=== PATIENT | male | born 1945 | race Caucasian/White ===

== ENCOUNTER 2020-01-31 10:19 | Emergency (ER) | payer MEDICARE ==
[~2020-01-31] VITALS: Ht 188 cm; Wt 99.8 kg
[2020-01-31 10:19] VITALS: BP 177/84
[2020-01-31] MEDS ORDERED: LEVO88TA3 PO (10:33)
[2020-01-31] MEDS ORDERED: ATOR1TAB19 PO (10:33)
[2020-01-31] MEDS ORDERED: ASPI81TA86 PO (10:33)
[2020-01-31] MEDS ORDERED: BOOSTRIX/ADACEL VACCINE (DIPHTH/PERTUSS/ACELL/TETANUS) 0.5ML SYR IM ONE (10:45)
[2020-01-31] MEDS ORDERED: DERMABOND TOPICAL SKIN ADHESIVE TOP ONE (10:45)
--- NOTE | 2020-01-31 11:27 | REP ---
LEFT WRIST, FOUR VIEWS: Four views of the left wrist are performed. There is an old ulnar styloid fracture. No acute fracture or dislocation is seen. There are mild degenerative changes at the joint between the trapezium and base of first metacarpal. Electronically Signed by Jef Mosley MD 01/31/2020 07:42 P
--- NOTE | 2020-01-31 11:30 | REP ---
RIGHT RIB SERIES: Four views of the right ribs are performed. No fracture or bone lesion is seen. An accompanying view of the chest demonstrates multiple old left rib fractures. There is no acute infiltrate in either lung and no evidence of pneumothorax or pleural effusion. The heart is normal in size and there is mild calcification and tortuosity of the thoracic aorta. IMPRESSION: No evidence of right rib fracture. Electronically Signed by Jef Mosley MD 01/31/2020 07:42 P
[2020-01-31] MEDS ORDERED: NORC1TAB7 PO (11:41)
== END 2020-01-31 11:45 | disposition home or self-care (01) ==
LOC: M ED 10:19
DX: S20.211A Contusion of right front wall of thorax, initial encounter (principal); S01.81XA Laceration without foreign body of other part of head, initial encounter; S60.212A Contusion of left wrist, initial encounter; W17.4XXA Fall from dock, initial encounter; Y92.018 Other place in single-family (private) house as the place of occurrence of the external cause; Z79.899 Other long term (current) drug therapy; Z79.82 Long term (current) use of aspirin; Z79.890 Hormone replacement therapy

== ENCOUNTER 2020-02-03 17:45 | Emergency (ER) | payer MEDICARE ==
[~2020-02-03] VITALS: Ht 188 cm; Wt 100.4 kg
[~2020-02-03 17:45] MED LIST: ASPI81TA85 PO; ATOR1TAB19 PO; LEVO88TA3 PO; NORC1TAB7 PO
[2020-02-03] MEDS ORDERED: LIDOCAINE 5% (LIDODERM) PATCH TD ONE (18:30)
[2020-02-03] MEDS ORDERED: MORPHINE 2 MG/ML 1ML VIAL (J2270) IV ONE (18:30)
[2020-02-03 18:54] LABS: BASO # 0.1 10^3/uL (0.0-0.2); BASO % 0.8 % (0.0-1.0); EOS % 8.4 % (0.0-3.0); HEMATOCRIT 43.8 % (42.0-52.0); HEMOGLOBIN 14.7 g/dl (13.5-17.5); LYMPH # 3.6 10^3/uL (1.5-5.0); LYMPH % 30.1 % (24.0-44.0); MEAN CORPUSCULAR HEMOGLOBIN 32.2 pg (27.0-33.0); MEAN CORPUSCULAR HGB CONC 33.6 g/dl (32.0-36.5); MEAN CORPUSCULAR VOLUME 95.8 fl (80.0-96.0); MONO # 1.2 10^3/uL (0.0-0.8); MONO % 9.7 % (0.0-5.0); NEUTROPHILS % 50.7 % (36.0-66.0); PLATELET COUNT, AUTOMATED 465 10^3/uL (150-450); RED BLOOD COUNT 4.57 10^6/uL (4.30-6.10); WHITE BLOOD COUNT 11.9 10^3/uL (4.0-10.0)
[2020-02-03] MEDS ORDERED: ISOVUE-370 76% 100ML VIAL As Ordered ONE (19:05)
--- NOTE | 2020-02-03 19:24 | ECGEPIP ---
[facility] - ED Test Date: 2020-02-03 Pat Name: BEN ROSENTHAL Department: Room: - Gender: Male Marketing Campaign Analyst: RIVKA : 1945 Requested By: LAINE Zapien PA-C Order Number: [id number] Reading MD: Kiera Marmolejo Measurements Intervals [place] Rate: 74 P: 47 AR: 219 QRS: -7 QRSD: 102 T: 30 QT: 347 QTc: 386 Interpretive Statements SINUS RHYTHM WITH FIRST DEGREE AV BLOCK DELAYED R WAVE PROGRESSION NONSPECIFIC ST T WAVE CHANGES Electronically Signed on 02-03-2020 19:24:20 EDT by Kiera Marmolejo
[2020-02-03 19:35] LABS: APPEARANCE, URINE CLEAR (CLEAR); BACTERIA, URINE AUTO NEGATIVE (NEGATIVE); BILIRUBIN, URINE AUTO NEGATIVE (NEGATIVE); BLOOD, URINE BLOOD 1+ (NEGATIVE); COLOR, URINE YELLOW (YELLOW); GLUCOSE, URINE (UA) AUTO NEGATIVE (NEGATIVE); KETONE, URINE AUTO NEGATIVE (NEGATIVE); LEUKOCYTE ESTERASE, URINE AUTO NEGATIVE (NEGATIVE); MUCUS, URINE SMALL (NEGATIVE); NITRITE, URINE AUTO NEGATIVE (NEGATIVE); PROTEIN, URINE AUTO NEGATIVE (NEGATIVE); RBC, URINE AUTO 2 /HPF (0-3); SPECIFIC GRAVITY URINE AUTO 1.026 (1.002-1.035); SQUAMOUS EPITHELIAL CELL UR AU 0 /HPF (0-6); UROBILINOGEN, URINE AUTO 0.2 mg/dL (0.0-2.0); WBC, URINE AUTO 0 /HPF (0-3)
--- NOTE | 2020-02-03 19:44 | REPVR ---
PROCEDURE INFORMATION: Exam: CT Abdomen And Pelvis With Contrast Exam date and time: 02/03/2020 7:08 PM Age: 74 years old Clinical indication: Injury or trauma; Fall; Initial encounter; Blunt; Rlq; Additional info: Fell onto beam 3 days ago, increased pain TECHNIQUE: Imaging protocol: Computed tomography of the abdomen and pelvis with intravenous contrast. Radiation optimization: All CT scans at this facility use at least one of these dose optimization techniques: automated exposure control; mA and/or kV adjustment per patient size (includes targeted exams where dose is matched to clinical indication); or iterative reconstruction. Contrast material: ISOVUE 370; Contrast volume: 100 ml; Contrast route: IV; COMPARISON: No relevant prior studies available. FINDINGS: Lungs: Refer to the CT chest report on 02/03/2020 for details. Heart: Refer to the CT chest report on 02/03/2020 for details. Liver: There is fatty infiltration of the liver. No liver mass is noted. The contour of the liver is smooth. No hepatomegaly is noted. Gallbladder and bile ducts: No calcified gallstones are noted. No gallbladder wall thickening, pericholecystic fluid, or pericholecystic inflammatory changes are identified. No dilation of the bile ducts is noted. No calcified stones are seen in the common bile duct. Pancreas: Normal. No dilation of the main pancreatic duct is noted. There is no inflammatory fat stranding around the pancreas to suggest acute pancreatitis. Spleen: The spleen has been removed. There is a 15 mm splenule in the left upper quadrant of the abdomen. Adrenals: Normal. No mass. Kidneys and ureters: The kidneys are normal in appearance. No renal lesion is noted. No stones are noted in the kidneys or ureters. There is no hydronephrosis or hydroureter. There are no wedge-shaped areas of low attenuation in the kidneys to suggest pyelonephritis. There is no renal abscess or perinephric fluid collection. Stomach and bowel: The stomach and small bowel are unremarkable. There is colonic diverticulosis without evidence for diverticulitis. There is no evidence for a bowel obstruction, colitis, pneumatosis intestinalis, intussusception, volvulus, or perforated viscus. There is a large amount of formed stool in the cecum and ascending colon. There is a moderate amount of formed stool in the transverse colon. A mild amount of formed stool is present in the descending colon and rectosigmoid. Appendix: There are no findings to suggest acute appendicitis. Intraperitoneal space: No free air. No ascites. No asbcess. Retroperitoneal space: No fluid collection. No mass. Vasculature: The abdominal aorta is patent, normal in caliber, and there is no dissection. The iliac arteries, common femoral arteries, renal arteries, celiac artery, superior mesenteric artery, and inferior mesenteric artery are patent. There are mild atherosclerotic calcifications. Lymph nodes: No enlarged lymph nodes. Bladder: The partially distended urinary bladder is unremarkable. No stones or masses are seen in the bladder. Reproductive: The prostate gland is enlarged and measures 4.4 cm x 4.3 cm x 4.7 cm and the volume of the prostate gland is increased and measures 46.6 mL. The seminal vesicles are unremarkable. Bones/joints: There is an acute minimally displaced fracture of the right posterolateral 8th rib and an acute nondisplaced fracture of the right posterolateral 11th rib. There are old healed fracture deformities of the left posterior 8th, 9th, 10th, and 11th ribs. The ribs were not fully imaged. No suspicious osteolytic or osteoblastic lesion. There is a mild levoscoliosis of the lumbar spine and degenerative changes in the lumbar spine. Soft tissues: There is a small fat containing umbilical hernia. There are small bilateral fat containing indirect inguinal hernias, right larger than left. IMPRESSION: 1. Acute minimally displaced fracture of the right posterolateral 8th rib and an acute nondisplaced fracture of the right posterolateral 11th rib. 2. Intact abdominal and pelvic viscera. No hemorrhage in the abdomen or pelvis. 3. Small bilateral fat containing indirect inguinal hernias, right larger than left. 4. Small fat containing umbilical hernia. 5. Fatty liver. 6. Colonic diverticulosis without evidence for diverticulitis. 7. Enlarged prostate. Electronically signed by: Laurent Howard On 02/03/2020 19:44:16 PM
--- NOTE | 2020-02-03 19:44 | REPVR ---
PROCEDURE INFORMATION: Exam: CT Chest With Contrast Exam date and time: 02/03/2020 7:08 PM Age: 74 years old Clinical indication: Injury or trauma; Fall; Initial encounter; Blunt trauma (contusions or hematomas); Additional info: Fell onto beam 3 days ago, increased pain TECHNIQUE: Imaging protocol: Computed tomography of the chest with intravenous contrast. Radiation optimization: All CT scans at this facility use at least one of these dose optimization techniques: automated exposure control; mA and/or kV adjustment per patient size (includes targeted exams where dose is matched to clinical indication); or iterative reconstruction. Contrast material: ISOVUE 370; Contrast volume: 100 ml; Contrast route: IV; COMPARISON: CR Ribs uni W-PA CHEST ONLY 01/31/2020 10:53 AM FINDINGS: Tracheobronchial tree: Intact and patent. Lungs: There is an 11 mm calcified granuloma in the posterior segment of the left lower lobe along the left hemidiaphragm (image 87 of the axial series 304). There is mild dependent atelectasis in both lower lobes. The lungs are otherwise clear. There is no evidence for a pulmonary contusion or pulmonary laceration. There is no lung consolidation or mass. No emphysematous changes or interstitial lung disease is noted. Pleural space: Normal. No pneumothorax or pleural effusion. Heart: No cardiomegaly or pericardial effusion. There are calcifications of the mitral annulus, aortic valve, and coronary arteries. Mediastinum: No mediastinal mass, fluid collection, or pneumomediastinum. Pulmonary arteries: The main pulmonary arteries are patent. This study was not dedicated for the evaluation of the lobar, segmental, and subsegmental pulmonary arteries, which are poorly opacified. Aorta: There is no thoracic aortic aneurysm, pseudoaneurysm, intramural hematoma, penetrating atherosclerotic ulcer, or dissection. Great vessels off aortic arch: The brachiocephalic artery, imaged proximal portion of the left common carotid artery, and left subclavian artery are intact. No stenosis or occlusion of these vessels is noted. Lymph nodes: There are subcentimeter mediastinal lymph nodes. However, no abnormally enlarged lymph nodes measuring greater than 1 cm in short axis are noted. Diaphragm: Intact. Bones/joints: There is an acute minimally displaced fracture of the right posterolateral 8th rib and an acute nondisplaced fracture of the right posterolateral 11th rib. There are old healed fracture deformities of the left posterior 5th, 6th, 7th, 8th, 9th, 10th, and 11th ribs. Soft tissues: Unremarkable. Other findings: Refer to the CT abdomen and pelvis report on 02/03/2020 for details regarding the abdominal and pelvic findings. IMPRESSION: 1. Acute minimally displaced fracture of the right posterolateral 8th rib and an acute nondisplaced fracture of the right posterolateral 11th rib. 2. No pulmonary contusion, pleural effusion, or pneumothorax. Electronically signed by: Laurent Howard On 02/03/2020 19:44:05 PM
[2020-02-03 20:15] VITALS: BP 177/84
[2020-02-03] MEDS ORDERED: OXYCODONE/APAP 5MG/325MG(BULK FOR ED) 1 TABLET PO ONE (20:15)
[2020-02-03] MEDS ORDERED: PERC5TAB12 PO (20:15)
[2020-02-03] MEDS ORDERED: ROBA750T4 PO (20:15)
[2020-02-03] MEDS ORDERED: methocarbamoL 750 MG TAB PO ONE (20:15)
[2020-02-03] MEDS ORDERED: **NOTE PATIENT COMMENT** MISC XX SCH (21:00)
== END 2020-02-03 20:42 | disposition home or self-care (01) ==
LOC: M ED 17:45
DX: S22.41XA Multiple fractures of ribs, right side, initial encounter for closed fracture (principal); R07.1 Chest pain on breathing; R10.9 Unspecified abdominal pain; W01.198A Fall on same level from slipping, tripping and stumbling with subsequent striking against other object, initial encounter; Y92.89 Other specified places as the place of occurrence of the external cause; I44.0 Atrioventricular block, first degree; E78.5 Hyperlipidemia, unspecified; E03.9 Hypothyroidism, unspecified; Z79.899 Other long term (current) drug therapy; Z79.82 Long term (current) use of aspirin
CPT/HCPCS: 71260; 74177; 80047; 81001; 85025; 93005; 99284; Q9967

== ENCOUNTER → 2020-03-03 | Outpatient (REF) | payer MEDICARE ==
[~2020-03-03] MED LIST changes: -ASPI81TA85 PO; +ASPI81TA86 PO; +PERC5TAB12 PO; +ROBA750T4 PO
[2020-03-03 12:58] LABS: BASO # 0.1 10^3/uL (0.0-0.2); BASO % 1.6 % (0.0-1.0); EOS # 0.8 10^3/uL (0.0-0.5); EOS % 9.8 % (0.0-3.0); HEMATOCRIT 43.6 % (42.0-52.0); HEMOGLOBIN 14.2 g/dl (13.5-17.5); LYMPH # 3.6 10^3/uL (1.5-5.0); LYMPH % 44.4 % (24.0-44.0); MEAN CORPUSCULAR HEMOGLOBIN 31.7 pg (27.0-33.0); MEAN CORPUSCULAR HGB CONC 32.6 g/dl (32.0-36.5); MEAN CORPUSCULAR VOLUME 97.3 fl (80.0-96.0); MONO # 0.8 10^3/uL (0.0-0.8); MONO % 9.3 % (0.0-5.0); NEUTROPHILS # 2.8 10^3/uL (1.5-8.5); NEUTROPHILS % 34.5 % (36.0-66.0); PLATELET COUNT, AUTOMATED 470 10^3/uL (150-450); RED BLOOD COUNT 4.48 10^6/uL (4.30-6.10); WHITE BLOOD COUNT 8.1 10^3/uL (4.0-10.0)
== END ==
LOC: M SFHCCLAY 07:37
PROVIDERS: ATTEND Physician Assistant
DX: D47.3 Essential (hemorrhagic) thrombocythemia (principal); Z12.5 Encounter for screening for malignant neoplasm of prostate
CPT/HCPCS: 82728; 85025; 88300; G0103

== ENCOUNTER → 2022-03-21 | Outpatient (CLI) | payer MEDICARE ==
[~2022-03-21] MED LIST changes: +ASPI81TA26 PO; +DICL75TA PO; +ROSU10TA6 PO
== END ==
LOC: M LABSMTC 09:34
PROVIDERS: ATTEND Surgery
DX: Z11.52 Encounter for screening for COVID-19 (principal)

== ENCOUNTER → 2022-05-04 | Outpatient (CLI) | payer MEDICARE ==
[~2022-05-04] MED LIST changes: +CYAN500T14 PO; +VITA100093 PO; +VITMTA PO
== END ==
LOC: M LABSMTC 09:19
PROVIDERS: ATTEND Anesthesiology
DX: Z01.818 Encounter for other preprocedural examination (principal); Z11.52 Encounter for screening for COVID-19

== ENCOUNTER 2022-05-06 10:12 | Day surgery (SDC) | payer MEDICARE ==
[~2022-05-06] VITALS: Ht 188 cm; Wt 94.8 kg
[~2022-05-06 10:12] MED LIST changes: +NS 1,000 ML IV ONE
[2022-05-06] MEDS ORDERED: LIDOCAINE 2% 100MG/5ML SDV (FOR ANES.) As Ordered ONE (11:37)
[2022-05-06] MEDS ORDERED: propofoL 200 MG/20 ML VIAL As Ordered ONE (11:37)
[2022-05-06] MEDS ORDERED: fentaNYL 100 MCG/2 ML INJECTION As Ordered ONE (11:53)
[2022-05-06 12:27] VITALS: BP 142/80
== END 2022-05-06 12:32 | disposition home or self-care (01) ==
LOC: M OPP 10:12
PROVIDERS: ATTEND Surgery
DX: D12.8 Benign neoplasm of rectum (principal); K57.30 Diverticulosis of large intestine without perforation or abscess without bleeding; Z80.0 Family history of malignant neoplasm of digestive organs; R19.5 Other fecal abnormalities; G47.30 Sleep apnea, unspecified; E78.5 Hyperlipidemia, unspecified; E03.9 Hypothyroidism, unspecified; Z79.02 Long term (current) use of antithrombotics/antiplatelets; Z79.82 Long term (current) use of aspirin; Z79.899 Other long term (current) drug therapy; Z88.4 Allergy status to anesthetic agent; Z88.6 Allergy status to analgesic agent; Z86.19 Personal history of other infectious and parasitic diseases
CPT/HCPCS: 45380; 88305; J3010